=== PATIENT | female | born 1930 | race Caucasian/White ===

== ENCOUNTER 2017-12-28 07:57 | Emergency (ER) | payer OTHER ==
--- OUTSIDE RECORDS SUMMARY | 2017-12-28 08:00 | XMS REPORT ---
:1930 [facility] Address [address] [place] [address] Dr. Sanchez. [address] [place] [address] Care Team Providers Name Role Phone DR AMY KRAFT Unavailable Unavailable Problems This patient has no known problems. Allergies, Adverse Reactions, Alerts This patient has no known allergies or adverse reactions. Medications This patient has no known medications. Encounters Start End Encounter Admission Attending Care Care Encounter Date/Time Date/Time Type Type Clinicians Facility Department ID 2017-11-04 2017-12-02 Inpatient C [facility] [id number] 20:48:00 15:19:00 AMY Results Test Description Test Time Test Comments Text Results Atomic Results Result Comments BASIC METABOLIC PANEL 2017-11-20 05:43:00 Test Item Value Reference Range Comments GLUCOSE (test code=06D) 91 mg/dL 75-100 SODIUM (test code=01A) 138 mmol/L 136-145 POTASSIUM (test code=01B) 4.3 mmol/L 3.6-5.1 CHLORIDE (test code=04A) 104 mmol/L 98-107 CO2 (test code=02A) 27 mmol/L 22-32 ANION GAP (test code=ANG) 11.3 mmol/L BUN (test code=05D) 40 mg/dL 7-18 CREATININE (test code=03E) 1.1 mg/dL 0.4-1.1 BUN/CREA (test code=BCR) 36 12-20 CALCIUM (test code=09D) 8.5 mg/dL 8.3-9.5 XR FACIAL BONES COMPLETE 3 [id number] 23:36:40Examination: Facial bone seriesLocation code: [id number]: NoneDiscussion:Clinical history is remarkable for fall. 3 views of the face were obtained. Themineralization is appropriate. No fracture deformity or dislocation isidentified. Mandible and maxilla are intact.Impression:1. No acute bony deformity.XR CHEST 1 [id number] 08:12:33Portable AP chest, 1 viewLocation Code: [id number] HISTORY: [id number] : Hospital admission (procedure)COMPARISON: NoneCOMMENT: The heart size is mildly enlarged with central congestion and bibasilarsubsegmental atelectasis. Osseous structures are intact.IMPRESSION: Central congestion with mild bibasilarsubsegmental atelectasis.THYROID PANEL/SCREEN (TSH)2017-11-05 07:24:00 Test Item Value Reference Range Comments TSH (test code=A57) 2.580 uIU/mL 0.358-3.740 B12 [id number] 06:56:00 Test Item Value Reference Range Comments VIT B12 (test code=A60) 150.0 pg/mL 180.0-914.0 [id number] 06:56:00 Test Item Value Reference Range Comments FOLATE (test code=A75) 23.9 ng/mL 3.1-17.5 [id number] 06:43:00 Test Item Value Reference Range Comments PREALBUMIN (test code=08E) 14 mg/dL 18-38 LIPID [id number] 06:43:00 Test Item Value Reference Range Comments CHOLESTROL (test code=44A) 131 mg/dL 140-200 TRIGLYCERI (test code=42B) 67 mg/dL <=149 HDL (test code=83D) 60.0 mg/dL 40.0-60.0 LDL (test code=34B) 64 mg/dL <=99 CHL/HDL (test code=CHR) 2.2 0.0-3.4 [id number] 06:43:00 Test Item Value Reference Range Comments MAGNESIUM (test code=48A) 2.1 mg/dL 1.8-2.4 [id number] 06:20:00 Test Item Value Reference Range Comments Hb A1C % (test code=HBA) 5.9 % 4.2-6.3 BASIC METABOLIC [id number] 06:19:00 Test Item Value Reference Range Comments GLUCOSE (test code=06D) 93 mg/dL 75-100 SODIUM (test code=01A) 139 mmol/L 136-145 POTASSIUM (test code=01B) 4.0 mmol/L 3.6-5.1 CHLORIDE (test code=04A) 107 mmol/L 98-107 CO2 (test code=02A) 27 mmol/L 22-32 ANION GAP (test code=ANG) 9.0 mmol/L BUN (test code=05D) 32 mg/dL 7-18 CREATININE (test code=03E) 1.0 mg/dL 0.4-1.1 BUN/CREA (test code=BCR) 32 12-20 CALCIUM (test code=09D) 8.9 mg/dL 8.3-9.5 AMMONIA [id number] 06:16:00 Test Item Value Reference Range Comments AMMONIA (test code=54A) <10 umol/L 11-32 CBC (INCLUDES AUTOMATED DIFFERENTIAL)2017-11-05 06:04:00 Test Item Value Reference Range Comments WBC (test code=WBC) 6.6 10\S\3/uL 4.5-11.0 RBC (test code=RBC) 4.10 10\S\6/uL 3.80-5.80 HGB (test code=HBG) 11.5 g/dL 12.0-15.5 HCT (test code=HCT) 35.7 % 35.0-44.0 MCV (test code=MCV) 87.1 fL 81.0-99.0 MCH (test code=MCH) 28.0 pg 27.0-31.0 MCHC (test code=MCHC) 32.2 g/dL 32.0-36.0 RDW (test code=RDW) 15.8 % 11.5-14.5 PLT (test code=PLT) 271 10\S\3/uL 130-400 MPV (test code=MPV) 9.6 fL 9.4-12.4 NEUTROP # (test code=NE#) 3.5 10\S\3/uL 1.6-8.0 LYMPH # (test code=LY#) 2.3 10\S\3/uL 1.1-3.5 MONOCYTE # (test code=MO#) 0.6 10\S\3/uL 0.0-1.1 EOSINOPH # (test code=EO#) 0.2 10\S\3/uL 0.0-0.7 BASOPHIL # (test code=BA#) 0.0 10\S\3/uL 0.0-0.3 IG # (test code=IG#) 0.04 10\S\3/uL 0.00-0.06 NRBC # (test code=NRBC#) 0.00 10\S\3/uL 0.00-0.01 NEUTROPH % (test code=NE%) 52.9 % 35.0-73.0 LYMPH % (test code=LY%) 34.5 % 20.0-55.0 MONO % (test code=MO%) 8.6 % 2.5-10.0 EOSINOPH % (test code=EO%) 2.9 % 0.0-5.0 BASOPHIL % (test code=BA%) 0.5 % 0.0-2.0 IG % (test code=IG%) 0.6 % 0.0-0.8 NRBC% (test code=NRBC%) 0.0 % 0.0-0.2 MANDIFF (test code=MDIFF) NO NO RBC MORPH (test code=RBCMOR) NORMAL
[2017-12-28 08:21] LABS: Absolute Monocytes 1.3 K/uL (0.1-1.3); Absolute Neutrophil 14.7 K/uL (1.8-8.0); Basophils % 0.2 % (0-1.3); Eosinophils % 0.5 % (0-4.4); Hematocrit 32.9 % (36.0-45.0); Lymphocytes % 11.2 % (15.3-44.8); MCH 27.8 pg (27.0-35.0); MCV 85.9 fL (80-100); MPV 7.8 fL (7.6-11.3); Monocytes % 6.9 % (3.3-12.3); RBC Red Blood Cell Count 3.83 M/uL (3.86-4.86)
[2017-12-28] MEDS ORDERED: RSI MEDICATION KIT IV ONE (08:21)
[2017-12-28] MEDS ORDERED: Nicardipine/NS 0 MG/0 ML KIT IV ONE (08:21)
--- NOTE | 2017-12-28 08:23 | RAD REPORT ---
EXAM DESCRIPTION: CT - Ct Stroke Brain Wo Cont - 12/28/2017 8:13 am CLINICAL HISTORY: CVA COMPARISON: 09/13/2017, 11/16/2012 TECHNIQUE: All CT scans are performed using dose optimization technique as appropriate and may inclu de automated exposure control or mA/KV adjustment according to patient size. FINDINGS: A large right-sided intraparenchymal hemorrhage is present measuring 6 x 6 cm. There is askew rrounding vasogenic edema noted.Blood is seen extending into the right lateral ventricle, third ventr icle, fourth ventricle, basal cisterns and posterior aspect the left lateral ventricle.Right to left midline shift of 8 mm is noted. Mild dilatation of the left lateral ventricle is seen. The paranasal sinuses and mastoids are clear. The calvarium is intact. IMPRESSION: Large acute intraparenchymal and extensive intraventricular hemorrhage as detailed above . 8 mm right to left midline shift is evident. The findings were discussed with ER physician Dr. Srivastava on 12/28/2017 at 8:20 a.m. by telephone.
[2017-12-28 08:26] LABS: Protime INR 1.06
[2017-12-28] MEDS ORDERED: levETIRAcetam 1,000 MG in NA CHLORIDE 0.9% 100 ML IV ONE (08:30)
[2017-12-28 08:31] LABS: Potassium 3.7 mEq/L (3.6-5.0)
[2017-12-28] MEDS ORDERED: NA CHLORIDE 0.9% 1,000 ML ONE (09:03)
--- NOTE | 2017-12-28 09:32 | EDPHYS ---
Physician Documentation [facility] Name: Nette Winslow Age: 87 yrs Sex: Female : 1930 Arrival Date: 12/28/2017 Time: 07:58 Bed 3 Private MD: ED Physician Mir Srivastava HPI: 12/28 08:06 This 87 yrs old Female presents to ER via Unassigned with complaints of rn Altered Mental Status. 08:06 The patient presents with decreased mental status, decreased responsiveness. Onset: The rn symptoms/episode began/occurred at an unknown time. Possible causes: CVA or TIA, sepsis. Associated signs and symptoms:. Unable to obtain HPI due to altered mental status, baseline dementia. The patient has experienced similar episodes in the past. Per EMS, pt with afib and history of multiple CVA, unclear onset but elroft states onset around 0230, per elmcroft, baseline is talkative and gets around with wheelchair, found on floor with emesis. . Historical: - Allergies: 08:26 Banana; iw 08:26 Codeine; iw 08:26 diphenhydramine HCl; iw 08:26 duracef; iw 08:26 EGG/POULTRY; iw 08:26 Latex, Natural Rubber; iw 08:26 oxytetracycline; iw 08:26 oxytetracycline HCl; iw 08:26 PENICILLINS; iw 08:26 Tetanus Vaccines Toxoid; iw - PMHx: 08:26 CVA; Dementia; iw - PSHx: 08:26 Knee surgery; Hysterectomy; iw - Immunization history:: Adult Immunizations unknown. - Social history:: Smoking status: . - Ebola Screening: : Unable to complete screening because patient is unresponsive, patient does not understand. - Unable to obtain history due to: altered mental status, baseline dementia. ROS: 08:06 Unable to obtain ROS due to altered mental status, baseline dementia. rn Exam: 08:06 Constitutional: Thin woman, aphasic, not following commands Head/Face: Normocephalic, rn atraumatic. Eyes: Pupils equal round and reactive to light, resists when trying to open right eye ENT: dry MM Neck: Trachea midline, no thyromegaly or masses palpated, and no cervical lymphadenopathy. Supple, full range of motion without nuchal rigidity, or vertebral point tenderness. No Meningismus. Cardiovascular: tachycardic, irregular, no murmur Respiratory: + mild tachypnea with diminished breath sounds bilaterally, no wheezing Abdomen/GI: Soft, non-tender, with normal bowel sounds. No distension or tympany. No guarding or rebound. No evidence of tenderness throughout. MS/ Extremity: Pulses equal, no cyanosis. Neuro: Awake but does not follow commands, withdraws right arm and left leg from pain, aphasic, RUE tremor. Vital Signs: 08:04 BP 139 / 76; Pulse 108; Resp 17; Temp 96.6(TE); Pulse Ox 72% on R/A; Weight 49.9 kg tw2 (R); Height 5 ft. 0 in. (152.40 cm); 08:05 Temp 97.0(R); sg 08:05 Pulse Ox 100% on 100% Non-rebreather mask; sg 08:24 BP 124 / 91; Pulse 99; Resp 26 S; Pulse Ox 98% on Non-rebreather mask; iw 08:50 BP 92 / 59; Pulse 101 MON; Resp 20 S; Pulse Ox 100% on 100% Non-rebreather mask; sg 09:07 BP 139 / 71; Pulse 110; Resp 19 S; Pulse Ox 100% on 100% Non-rebreather mask; sg 08:04 Body Mass Index 21.48 (49.90 kg, 152.40 cm) tw2 08:05 pt 02 saturation increased post NRB application sg NIH Stroke Scale Scores: 08:03 NIHSS Score: 18 rn 08:25 NIHSS Score: 19 iw [place] Coma Score: 08:54 Eye Response: to pain(2). Verbal Response: none(1). Motor Response: withdraws from iw pain(4). Total: 7. MDM: 07:59 Patient medically screened. 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 Found on ground, not at baseline.. 08:11 ED course: No TPA indicated due to large deficits, as well as onset reported by dylan Lee is around 0230, outside of window. . 08:27 ED course: Discussed case with son, who states previous hemorrhage, no known blood rn thinner, states patient is DNR, spoke with him regarding need for transport and intubation due to decreased responsiveness, is deciding right now, asked for 5 min to call family and discuss if they want intubation.. 08:48 ED course: Spoke with son, dont want intubation, do want transfer to [place] where rn patient has been taken care of before for hemorrhagic stroke, pt with some purposeful movement of right arm, is grasping for things, aphasic, oxygen 100% with facemask.. 09:18 Differential Diagnosis: CVA, electrolyte abnormality, intracranial bleed. Data rn reviewed: vital signs, nurses notes, lab test result(s), EKG, radiologic studies, and as a result, I will admit patient. Counseling: I had a detailed discussion with the patient and/or guardian regarding: the historical points, exam findings, and any diagnostic results supporting the discharge/admit diagnosis, radiology results, the need to transfer to another facility, for higher level of care, [facility] does not immediately have the required specialist. ED course: Dr Thompson at [place] requested intubation, I recommended intubation from beginning to family, patient has DNR order, family also does not want her intubated, will fly via [facility] to [place] for management of hemorrhagic stroke. . 09:55 ED course: [facility] here for transport, talked again with son, who has guardianship rn of patient and makes medical decisions, still do not want intubation, ok accepting risks. . 12/28 08:00 Order name: Basic Metabolic Panel; Complete Time: 08:59 rn 12/28 08:00 Order name: CBC with Diff; Complete Time: 08:59 rn 12/28 08:00 Order name: Protime (+inr); Complete Time: 08:59 rn 12/28 08:00 Order name: Ptt, Activated; Complete Time: 08:59 rn 12/28 08:00 Order name: Urine Microscopic Only rn 12/28 08:45 Order name: Urine Dipstick--Ancillary (enter results) bd 12/28 08:00 Order name: CT Stroke Brain w/o Contrast; Complete Time: 08:59 rn 12/28 08:00 Order name: Stroke CXR 1 View rn 12/28 08:00 Order name: EKG; Complete Time: 08:00 rn 12/28 08:02 Order name: XRAY Hand LEFT 3 View rn 12/28 08:21 Order name: Diet Regular Pedi; Complete Time: 08:22 bd 12/28 08:00 Order name: Accucheck; Complete Time: 08:33 rn 05 08:00 Order name: Cardiac monitoring; Complete Time: 08:33 rn 05 08:00 Order name: EKG - Nurse/Tech; Complete Time: 08:50 rn 12/28 08:00 Order name: IV Saline Lock; Complete Time: 08:33 rn 05 08:00 Order name: Labs collected and sent; Complete Time: 08:33 rn 12/28 08:00 Order name: NPO; Complete Time: 08:33 rn 12/28 08:00 Order name: O2 Per Protocol; Complete Time: 08:33 rn 12/28 08:00 Order name: O2 Sat Monitoring; Complete Time: 08:33 rn 12/28 08:00 Order name: Stroke Swallow Screen; Complete Time: 08:33 rn 12/28 08:00 Order name: Urine Dipstick-Ancillary (obtain specimen); Complete Time: 08:50 rn 12/28 08:34 Order name: Lerma; Complete Time: 08:49 sg Administered Medications: 08:20 Drug: Keppra 1000 mg Route: IV; Rate: calculated rate; Site: left antecubital; sg 08:50 Follow up: Response: No adverse reaction; IV Status: Completed infusion sg 09:00 Drug: NS 0.9% 500 ml Route: IV; Rate: bolus; Site: left antecubital; sg 09:01 Not Given (Hemodynamic Parameters): Cardene 5 mg/hr IV at mg/hr continuous; 5mg/hr iw Point of Care Testing: Blood Glucose: 08:04 Blood Glucose: 237 mg/dL; tw2 Ranges: Critical Glucose Levels:Adult <50 mg/dl or >400 mg/dl <40 mg/dl or >180 mg/dl Disposition: 09:30 Critical Care:. rn 12/29 07:17 Co-signature as Attending Physician, Mir Srivastava MD. rn Disposition: 12/28/17 09:31 Transfer ordered to [facility]. Diagnosis are Acute hemorrhagic stroke, Altered mental status, unspecified. - Reason for transfer: Higher level of care. - Accepting physician is Dr. Jay. - Condition is Serious. - Problem is new. - Symptoms are unchanged. Critical care time excluding procedures: 12/28 09:30 Critical care time: Bedside Care: 25 minutes, Consultation: 5 minutes, Family rn Intervention: 5 minutes. Total time: 35 minutes NIH Stroke Scale - NIH Stroke Score Date: 12/28/2017 Time: 08:03 Total Score = 18 1a. Level of Consciousness (LOC) - 1(Not Alert) 1b. Level of Consciousness (LOC) (Year \T\ Age) - 2(Neither) 1c. LOC Commands (Open \T\ Closes Eyes/Manager [employer] Development) - 2(Neither) 2. Best Gaze (Lateral Gaze Paresis) - 0(Normal) 3. Visual Field Loss - 0(No visual loss) 4. Facial Palsy - 0(Normal) 5a. Left Arm: Motor (10-second hold) - 4(No movement) 5b. Right Arm: Motor (10-second hold) - 1(Drift) 6a. Left Leg: Motor (5-second hold - always test supine) - 2(Drift, some effort against gravity) 6b. Right Leg: Motor (5-second hold - always test supine) - 2(Drift, some effort against gravity) 7. Limb Ataxia (finger/nose \T\ heel/ortiz - test with eyes open) - 0(Absent) 8. Sensory Loss (pinprick arms/legs/face) - 0(Normal) 9. Best Language: Aphasia (description/naming/reading) - 2(Severe aphasia) 10. Dysarthria (speech clarity - read or repeat words) - 2(Severe) 11. Extinction and Inattention (visual/tactile/auditory/spatial/personal) - 0(No abnormality) Initials: rn NIH Stroke Scale - NIH Stroke Score Date: 12/28/2017 Time: 08:25 Total Score = 19 1a. Level of Consciousness (LOC) - 1(Not Alert) 1b. Level of Consciousness (LOC) (Year \T\ Age) - 2(Neither) 1c. LOC Commands (Open \T\ Closes Eyes/Manager Software Development) - 2(Neither) 2. Best Gaze (Lateral Gaze Paresis) - 1(Partial gaze palsy) 3. Visual Field Loss - 0(No visual loss) 4. Facial Palsy - 0(Normal) 5a. Left Arm: Motor (10-second hold) - 2(Drift, some effort against gravity) 5b. Right Arm: Motor (10-second hold) - 0(No drift) 6a. Left Leg: Motor (5-second hold - always test supine) - 2(Drift, some effort against gravity) 6b. Right Leg: Motor (5-second hold - always test supine) - 2(Drift, some effort against gravity) 7. Limb Ataxia (finger/nose \T\ heel/ortiz - test with eyes open) - 0(Absent) 8. Sensory Loss (pinprick arms/legs/face) - 1(Mild to moderate loss) 9. Best Language: Aphasia (description/naming/reading) - 2(Severe aphasia) 10. Dysarthria (speech clarity - read or repeat words) - 2(Severe) 11. Extinction and Inattention (visual/tactile/auditory/spatial/personal) - 2(Profound) Initials: iw Signatures: Dispatcher [employer] EDMS Dylan Hill RN RN sg Swathi Shen RN RN iw Mir Srivastava MD MD rn icu: (The following items were deleted from the chart) 10:03 09:31 12/28/2017 09:31 Transfer ordered to [facility]. Diagnosis is Acute hemorrhagic stroke; Altered mental status, unspecified. Reason for transfer: Higher level of care. Accepting physician is Dr. Thompson. Condition is Serious. Problem is new. Symptoms are unchanged. rn
--- NOTE | 2017-12-28 09:32 | ER ---
Nurse's Notes [facility] Name: Nette Winslow Age: 87 yrs Sex: Female : 1930 Arrival Date: 12/28/2017 Time: 07:58 Bed 3 Private MD: Diagnosis: Acute hemorrhagic stroke;Altered mental status, unspecified Presentation: 12/28 08:00 Presenting complaint: EMS states: pt was found by horse trader this morning unconscious on tw2 the floor, had vomited but was breathing. pt normally walks with w/c and talks, bgl 288, Hx: alz, dem, cva, 20 g LEFT ac 4mg zofran given, afib with rvr on monitor and Left bundle branch noted. Transition of care: patient was received from another setting of care (long-term care facility), [facility]. An acute neurological deficit is present. The patients blood glucose was checked prior to arriving to the hospital and was found to be hyperglycemic. Onset of symptoms was December 28, 2017. Risk Assessment: Do you want to hurt yourself or someone else? Patient reports no desire to harm self or others. Initial Sepsis Screen: Does the patient meet any 2 criteria? No. Patient's initial sepsis screen is negative. Does the patient have a suspected source of infection? No. Patient's initial sepsis screen is negative. Care prior to arrival: Medication(s) given: zofran 4 mg, IV initiated. 20 GA, in the left antecubital area. 08:00 Method Of Arrival: EMS: [facility] tw2 08:00 Acuity: SARAHY 2 tw2 Triage Assessment: 08:00 General: Appears in no apparent distress. Behavior is calm, cooperative, appropriate sg for age. Neuro: Reports. 09:41 The onset of the patients symptoms was December 28, 2017 at 09:41. sg Stroke Activation: Symtpom onset >3 hours and < 6 hours Physician: Stroke Attending; Name: ; Notified At: ; Arrived At: Physician: Chief Stroke Resident; Name: ; Notified At: ; Arrived At: Physician: Stroke Resident; Name: ; Notified At: ; Arrived At: Physician: ED Attending; Name: ; Notified At: ; Arrived At: Physician: ED Resident; Name: ; Notified At: ; Arrived At: Historical: - Allergies: 08:26 Banana; iw 08:26 Codeine; iw 08:26 diphenhydramine HCl; iw 08:26 duracef; iw 08:26 EGG/POULTRY; iw 08:26 Latex, Natural Rubber; iw 08:26 oxytetracycline; iw 08:26 oxytetracycline HCl; iw 08:26 PENICILLINS; iw 08:26 Tetanus Vaccines Toxoid; iw - PMHx: 08:26 CVA; Dementia; iw - PSHx: 08:26 Knee surgery; Hysterectomy; iw - Immunization history:: Adult Immunizations unknown. - Social history:: Smoking status: . - Ebola Screening: : Unable to complete screening because patient is unresponsive, patient does not understand. - Unable to obtain history due to: altered mental status, baseline dementia. Screenin:28 Abuse screen: Denies threats or abuse. Denies injuries from another. Nutritional iw screening: No deficits noted. Tuberculosis screening: No symptoms or risk factors identified. Fall Risk Fall in past 12 months (25 points). IV access (20 points). Assessment: 08:00 General: Appears well groomed, well developed, well nourished, Behavior is calm, sg cooperative, appropriate for age. Pain: Unable to use pain scale. Neuro: Level of Consciousness is unresponsive, Speech with expressive aphasia noted. Cardiovascular: Heart tones S1 S2 present Patient's skin is warm and dry. GI: EMS reports pt vomit on floor of residence, pt vomit x1 with EMS, EMS given Zofran IV. GI: Stools are reported to be loose stool noted. incontinent of bowel. : No deficits noted. EENT: No deficits noted. Derm: Skin is intact, is thin, Skin is pink, warm \T\ dry. Musculoskeletal: No deficits noted. 08:25 Patient has been NPO before screening. The patient is not alert and/or unable to follow commands. Bedside swallow screen discontinued. Patient kept NPO until cleared by Speech Therapy or Physician. 08:26 T-PA (Activase) Screening: Indications: No evidence of intracranial hemorrhage or CT of head and no evidence of peripheral hemorrhage or recent CVA: No. Contraindications: Intracranial hemorrhage and its risk factor and suspicion of subarachnoid bleed: Yes. 09:00 Reassessment: Dr. Srivastava speaking with family about code status, pt is DNR, family does iw not want pt to be intubated for transport to [place]. 09:02 The patient exhibits slurred or garbled speech. The patient is exhibiting difficulty iw speaking. The patient is exhibiting difficulty understanding words. The patient is unable to swallow own secretions without drooling or the need for suction. Bedside swallow screening discontinued. Patient kept NPO until cleared by Speech Therapy or Physician. The patient failed the bedside swallow screening. The patient will be kept NPO until cleared by Speech Therapy or Physician. Provider notified of bedside swallow screening results: Mir Srivastava MD. 09:16 Reassessment: Patient appears in no apparent distress at this time. Respiratory: Airway sg is patent Respiratory effort is even, unlabored, Respiratory pattern is symmetrical, tachypnea. 09:24 Reassessment: Report given to [facility], ETA 25 minutes. iw 09:50 Reassessment: a watch was removed from the pt left wrist, a ring that is gold in color sg is noted to the left ring finger, unable to remove, watch given to pt son at bedside, pt daughter requesting the ring be removed, unable to remove ring. a splint applied to left hand/wrist. 10:00 Reassessment: [facility] at bedside at this time, bedside report given to [facility] RN. sg Vital Signs: 08:04 BP 139 / 76; Pulse 108; Resp 17; Temp 96.6(TE); Pulse Ox 72% on R/A; Weight 49.9 kg tw2 (R); Height 5 ft. 0 in. (152.40 cm); 08:05 Temp 97.0(R); sg 08:05 Pulse Ox 100% on 100% Non-rebreather mask; sg 08:24 BP 124 / 91; Pulse 99; Resp 26 S; Pulse Ox 98% on Non-rebreather mask; iw 08:50 BP 92 / 59; Pulse 101 MON; Resp 20 S; Pulse Ox 100% on 100% Non-rebreather mask; sg 09:07 BP 139 / 71; Pulse 110; Resp 19 S; Pulse Ox 100% on 100% Non-rebreather mask; sg 08:04 Body Mass Index 21.48 (49.90 kg, 152.40 cm) tw2 08:05 pt 02 saturation increased post NRB application sg Ronni Coma Score: 08:54 Eye Response: to pain(2). Verbal Response: none(1). Motor Response: withdraws from iw pain(4). Total: 7. NIH Stroke Scale Scores: 08:03 NIHSS Score: 18 rn 08:25 NIHSS Score: 19 ED Course: 07:58 Patient arrived in ED. iw 07:59 Mir Srivastava MD is Attending Physician. rn 08:00 Arm band placed on. sg 08:08 Shasha Kaplan, RN is Primary Nurse. tw2 08:10 CT completed. Patient tolerated procedure well. Patient moved to CT via stretcher. sj 08:10 Triage completed. tw2 08:11 CT completed. Patient tolerated procedure well. Patient moved back from CT. sj 08:13 CT Stroke Brain w/o Contrast In Process Unspecified. EDMS 08:15 Initial lab(s) drawn, by ED staff, sent to lab. sg 08:25 Maintain EMS IV. Dressing intact. Good blood return noted. Site clean \T\ dry. Gauge \T\ iw site: 20 LAC. 08:25 Oxygen administration via non-rebreather mask \T\ 15L/min. iw 08:25 Patient has correct armband on for positive identification. Bed in low position. Call sg light in reach. Side rails up X2. hot plate plywood press laborer on. Pulse ox on. NIBP on. Warm blanket given. socks given Head of bed elevated. 08:30 Lerma cath inserted, using sterile technique, 16 Fr., by ED staff, balloon inflated, to sg gravity drainage, Patient tolerated well. Inserted saline lock: 20 gauge in right forearm, using aseptic technique. Blood collected. 08:52 Stroke CXR 1 View In Process Unspecified. EDMS 08:52 XRAY Hand LEFT 3 View In Process Unspecified. EDMS 08:59 X-ray completed. Portable x-ray completed in exam room. Patient tolerated procedure sw well. Note: STROKE CXR WAS DELAYED DUE TO NO ONE BEING AVAILABLE IN X RAY . 09:11 Primary Nurse role handed off by Shasha Kaplan, DYLAN sg 09:11 Dylan Hill, RN is Primary Nurse. sg 09:40 No provider procedures requiring assistance completed. Patient transferred, IV remains sg in place. intact, No redness/swelling at site. Administered Medications: 08:20 Drug: Keppra 1000 mg Route: IV; Rate: calculated rate; Site: left antecubital; sg 08:50 Follow up: Response: No adverse reaction; IV Status: Completed infusion sg 09:00 Drug: NS 0.9% 500 ml Route: IV; Rate: bolus; Site: left antecubital; 09:01 Not Given (Hemodynamic Parameters): Cardene 5 mg/hr IV at mg/hr continuous; 5mg/hr iw Point of Care Testing: Blood Glucose: 08:04 Blood Glucose: 237 mg/dL; tw2 Ranges: Outcome: 09:31 ER care complete, transfer ordered by MD. brown 09:40 Transferred by helicopter to [facility], Transfer form completed. Note: sg report called to DYLAN Tobin at 09:40 Condition: stable 09:40 Instructed on the need for transfer, safety practices. 10:03 Patient left the ED. sg NIH Stroke Scale - NIH Stroke Score Date: 12/28/2017 Time: 08:03 Total Score = 18 1a. Level of Consciousness (LOC) - 1(Not Alert) 1b. Level of Consciousness (LOC) (Year \T\ Age) - 2(Neither) 1c. LOC Commands (Open \T\ Closes Eyes/Earth Science Laboratory Technician) - 2(Neither) 2. Best Gaze (Lateral Gaze Paresis) - 0(Normal) 3. Visual Field Loss - 0(No visual loss) 4. Facial Palsy - 0(Normal) 5a. Left Arm: Motor (10-second hold) - 4(No movement) 5b. Right Arm: Motor (10-second hold) - 1(Drift) 6a. Left Leg: Motor (5-second hold - always test supine) - 2(Drift, some effort against gravity) 6b. Right Leg: Motor (5-second hold - always test supine) - 2(Drift, some effort against gravity) 7. Limb Ataxia (finger/nose \T\ heel/ortiz - test with eyes open) - 0(Absent) 8. Sensory Loss (pinprick arms/legs/face) - 0(Normal) 9. Best Language: Aphasia (description/naming/reading) - 2(Severe aphasia) 10. Dysarthria (speech clarity - read or repeat words) - 2(Severe) 11. Extinction and Inattention (visual/tactile/auditory/spatial/personal) - 0(No abnormality) Initials: dylan NIH Stroke Scale - NIH Stroke Score Date: 12/28/2017 Time: 08:25 Total Score = 19 1a. Level of Consciousness (LOC) - 1(Not Alert) 1b. Level of Consciousness (LOC) (Year \T\ Age) - 2(Neither) 1c. LOC Commands (Open \T\ Closes Eyes/Earth Science Laboratory Technician) - 2(Neither) 2. Best Gaze (Lateral Gaze Paresis) - 1(Partial gaze palsy) 3. Visual Field Loss - 0(No visual loss) 4. Facial Palsy - 0(Normal) 5a. Left Arm: Motor (10-second hold) - 2(Drift, some effort against gravity) 5b. Right Arm: Motor (10-second hold) - 0(No drift) 6a. Left Leg: Motor (5-second hold - always test supine) - 2(Drift, some effort against gravity) 6b. Right Leg: Motor (5-second hold - always test supine) - 2(Drift, some effort against gravity) 7. Limb Ataxia (finger/nose \T\ heel/ortiz - test with eyes open) - 0(Absent) 8. Sensory Loss (pinprick arms/legs/face) - 1(Mild to moderate loss) 9. Best Language: Aphasia (description/naming/reading) - 2(Severe aphasia) 10. Dysarthria (speech clarity - read or repeat words) - 2(Severe) 11. Extinction and Inattention (visual/tactile/auditory/spatial/personal) - 2(Profound) Initials: iw Signatures: Dispatcher [employer] Dylan Bai RN RN sg Jones, Susan sj Williams, Irene, RN RN iw Mir Srivastava MD MD rn Warren, Shannon sw Wise, Tara, RN RN tw2
[2017-12-28 10:07] VITALS: TEMP 97
[2017-12-28 10:10] VITALS: O2SAT 100
[2017-12-28 10:11] VITALS: BP 139/71
--- NOTE | 2017-12-28 10:21 | RAD REPORT ---
EXAM DESCRIPTION: RAD - Chest Single View - 12/28/2017 8:55 am CLINICAL HISTORY: Fall, chest pain COMPARISON: 09/09/2017 FINDINGS: Portable technique limits examination quality. Mild to moderate bilateral pulmonary opacities are present most likely representing pulmonary edema. The heart is mildly enlarged in size with a prominent hiatal hernia. No displaced fractures.Atheroscl erosis. IMPRESSION: Mild to moderate pulmonary edema.
[2017-12-28 10:31] LABS: Urine Blood NEGATIVE (NEG); Urine Glucose NEGATIVE (NEG); Urine Protein NEGATIVE (NEG); Urine Specific Gravity 1.015 (1.005-1.030); Urine pH 5.5 (5.0-7.0)
--- NOTE | 2017-12-28 10:46 | RAD REPORT ---
EXAM DESCRIPTION: RAD - Hand Left 3 View - 12/28/2017 8:55 am CLINICAL HISTORY: Pain and swelling first digit after fall. COMPARISON: None. FINDINGS: Advanced arthritic changes affect the first carpometacarpal joint. No acute fracture or di slocation is seen.
[2017-12-28 11:37] LABS: Urine Bacteria >50 /HPF (<20); Urine Culture Reflex Order REFLEXED; Urine RBC NONE SEEN /HPF (NONE SEEN)
--- NOTE | 2017-12-28 13:42 | EKG ---
Test Date: 2017-12-28 Test Time: 08:40:36 Gas Plant Repairer: SWG MEASUREMENT RESULTS: Intervals: Rate: 109 ME: 192 QRSD: 132 QT: 348 QTc: 468 [place]: P: 54 ME: 192 QRS: -32 T: 93 INTERPRETIVE STATEMENTS: Sinus tachycardia Left axis deviation Left bundle branch block Abnormal ECG Compared to ECG 03/06/2016 13:50:14 Left-axis deviation now present Sinus rhythm no longer present First degree AV block no longer present Electronically Signed On 12-28-17 13:40:42 CDT by Alexandro Urbina
== END 2017-12-28 10:03 | disposition short-term general hospital (02) ==
LOC: ER 07:57
DX: I61.9 Nontraumatic intracerebral hemorrhage, unspecified (principal); R29.719 NIHSS score 19; F03.90 Unspecified dementia, unspecified severity, without behavioral disturbance, psychotic disturbance, mood disturbance, and anxiety; I48.91 Unspecified atrial fibrillation; Z86.73 Personal history of transient ischemic attack (TIA), and cerebral infarction without residual deficits; Z88.0 Allergy status to penicillin; Z88.1 Allergy status to other antibiotic agents; Z88.5 Allergy status to narcotic agent; Z88.7 Allergy status to serum and vaccine; Z91.012 Allergy to eggs; Z91.018 Allergy to other foods; Z91.040 Latex allergy status
CPT/HCPCS: 36415; 51702; 70450; 71045; 73130; 80048; 82962; 85025; 85610; 85730; 87077; 87086; 87088; 87186; 93005; 96365; 99285; J1953; J7030; 81003; 81015